=== PATIENT | female | born 1970 | race Caucasian/White ===

== ENCOUNTER 2023-06-12 18:31 | Emergency (ER) | payer OTHER ==
[~2023-06-12] VITALS: Ht 152.4 cm; Wt 59.0 kg
--- NOTE | 2023-06-12 18:45 | NUR ---
DOMINGO DAVIS [phone]
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
[2023-06-12] MEDS ORDERED: ACETAMINOPHEN ES 500 MG TABLET ONE (19:16)
[2023-06-12] MEDS ORDERED: IV NS 0.9% 1,000 ML BAG IV ONE (19:30)
[2023-06-12] MEDS ORDERED: ACETAMINOPHEN ES 500 MG TABLET PO ONE (19:30)
[2023-06-12] MEDS ORDERED: IV NS 0.9% 250 ML IV ONE (19:47)
[2023-06-12] MEDS ORDERED: IOHEXOL-300 100 ML VIAL IV ONE (19:47)
[2023-06-12 19:51] LABS: BASOPHILS % (AUTO) 0.4 % (0.0-2.0); HEMATOCRIT 40 % (33-45); HEMOGLOBIN 13.3 g/dL (11.5-14.8); LYMPHOCYTES % (AUTO) 25.2 % (20.0-44.0); MEAN CORPUSCULAR HGB CONC 33 g/dl (31.0-36.0); MEAN CORPUSCULAR VOLUME 86 fL (82-100); MONOCYTES # (AUTO) 0.6 K/uL (0.1-1.30); MONOCYTES % (AUTO) 7.5 % (2.0-12.0); NEUTROPHILS % (AUTO) 63.9 % (43.0-81.0); PLATELET COUNT (AUTO) 201 K/uL (150-450); RED BLOOD CELL COUNT(AUTO) 4.66 MIL/uL (4.0-5.2); WHITE BLOOD COUNT (AUTO) 7.8 K/uL (4.3-11.0)
--- NOTE | 2023-06-12 20:07 | NUR ---
PT TAKEN TO CT VIA RE[facility]
[2023-06-12 20:18] LABS: ALBUMIN 3.9 g/dL (3.4-5.0); BILIRUBIN,DIRECT 0.1 mg/dL (0.0-0.2); BILIRUBIN,TOTAL 0.4 mg/dL (0.2-1.0); CALCIUM, SERUM 9.4 mg/dL (8.5-10.1); CREATININE 0.7 mg/dL (0.6-1.3); POTASSIUM 3.8 mmol/L (3.5-5.1); TOTAL PROTEIN, SERUM 7.3 g/dL (6.4-8.2)
--- NOTE | 2023-06-12 21:30 | NUR ---
Patient discharged to home in stable condition. Written and verbal after care instructions given. Patient verbalizes understanding of instruction.
[2023-06-12 22:23] VITALS: BP 110/77; TEMP 97.7; O2SAT 95
== END 2023-06-12 22:24 | disposition home or self-care (01) ==
LOC: ER 18:34
DX: R51.9 Headache, unspecified (principal); M54.2 Cervicalgia; R07.9 Chest pain, unspecified; R10.9 Unspecified abdominal pain; V49.9XXA Car occupant (driver) (passenger) injured in unspecified traffic accident, initial encounter; Y93.89 Activity, other specified; Y92.89 Other specified places as the place of occurrence of the external cause; Y99.8 Other external cause status
CPT/HCPCS: 99285; 72125; 96360; 71260; 70450; 74177; 85025; 80048; 83690; 80076; 36415; J7030; J7050; Q9967